=== PATIENT | male | born 1980 | race Caucasian/White ===

== ENCOUNTER 2019-04-17 13:21 | Emergency (ER) | payer MEDICAID ==
[~2019-04-17] VITALS: Ht 172.7 cm; Wt 88.0 kg
--- NOTE | 2019-04-17 13:41 | NUR ---
PT AMBULATORY TO ROOM 6 W/ C/O L KNEE PAIN AFTER TRIPPING 2 DAYS AGO. PT STATES HX L KNEE SURGERY IN THE PAST. PT RESTING ON CHARITO. EVELIA.
[2019-04-17] MEDS ORDERED: HYDROcodone/APAP 5/325 TABLET ONE (14:00)
[2019-04-17] MEDS ORDERED: HYDROcodone/APAP 5/325 TABLET PO ONE (14:00)
== END 2019-04-17 17:41 | disposition home or self-care (01) ==
LOC: ED 16:47
DX: M25.562 Pain in left knee (principal); F17.200 Nicotine dependence, unspecified, uncomplicated
CPT/HCPCS: 99284

== ENCOUNTER 2019-12-01 11:48 | Emergency (ER) | payer MEDICAID ==
[~2019-12-01] VITALS: Ht 172.7 cm; Wt 90.6 kg
[2019-12-01 12:07] VITALS: BP 101/57
--- NOTE | 2019-12-01 12:17 | NUR ---
PT C/O RING STUCK ON LEFT HAND RING FINGER. FINGER HAS FULL ROM, CMS INTACT. SUPERFICIAL ABRASION UNDER RING.
--- NOTE | 2019-12-01 12:19 | NUR ---
TECH AT BEDSIDE TO CUT RING OFF WITH RING CUTTER.
--- NOTE | 2019-12-01 12:26 | NUR ---
RING SUCCESSFULLY REMOVED BY TECH.
== END 2019-12-01 12:34 | disposition home or self-care (01) ==
LOC: ED 12:20
DX: L03.012 Cellulitis of left finger (principal); M79.5 Residual foreign body in soft tissue; F17.200 Nicotine dependence, unspecified, uncomplicated
CPT/HCPCS: 99284